=== PATIENT | female | born 1980 | race African-American/Black ===

== ENCOUNTER 2017-05-22 06:08 | Emergency (ER) | payer OTHER ==
[~2017-05-22] VITALS: Ht 152.4 cm; Wt 110.0 kg
[2017-05-22 07:15] VITALS: BP 157/85
[2017-05-22] MEDS ORDERED: DEXAMETHASONE 10 MG/ML VIAL IM ONE (07:15)
[2017-05-22] MEDS ORDERED: LORAZEPAM 1MG TABLET PO ONE (07:15)
[2017-05-22] MEDS ORDERED: KETOROLAC 60MG/2ML VIAL IM ONE (07:15)
== END 2017-05-22 10:24 | disposition home or self-care (01) ==
LOC: ER 06:08
DX: S46.911A Strain of unspecified muscle, fascia and tendon at shoulder and upper arm level, right arm, initial encounter (principal); F17.200 Nicotine dependence, unspecified, uncomplicated; X58.XXXA Exposure to other specified factors, initial encounter; Y93.89 Activity, other specified; Y92.89 Other specified places as the place of occurrence of the external cause; Y99.8 Other external cause status
CPT/HCPCS: 73030; 96372; 99284; J1100; J1885; A4565

== ENCOUNTER 2018-05-27 21:42 | Emergency (ER) | payer OTHER ==
[~2018-05-27] VITALS: Ht 154.9 cm; Wt 96.0 kg
[2018-05-28] MEDS ORDERED: ONDANSETRON HCL 4MG/2ML INJ IV STA (00:36)
[2018-05-28] MEDS ORDERED: MORPHINE SULFATE 4 MG/ML CPJ (NOT FOR IM USE) IV STA (00:36)
[2018-05-28] MEDS ORDERED: SODIUM CHLORIDE 0.9% 1,000 ML IV ONE (00:36)
[2018-05-28 01:00] LABS: BASOPHILS % 0.6 % (0.0-2.0); EOSINOPHILS % 0.6 % (0.0-5.0); HEMATOCRIT. 37.9 % (36.0-48.0); HEMOGLOBIN. 12.4 g/dL (12.0-16.0); LYMPHOCYTES % 29.4 % (20.0-50.0); MEAN CORPUSCULAR HEMOGLOBIN 28.3 pg (28.0-32.0); MEAN CORPUSCULAR VOLUME 86.4 fL (81.0-99.0); MEAN PLATELET VOLUME 7.3 fl (7.4-10.4); MONOCYTES % 7.6 % (2.0-8.0); NEUTROPHILS % 61.8 % (40.0-76.0); PLATELET 255 x1000/uL (130-400); RED BLOOD CELL COUNT 4.39 mill/uL (4.2-5.4); RED CELL DISTRIBUTION WIDTH 14.7 % (11.6-14.6)
[2018-05-28 01:05] LABS: CHLORIDE 109 mEq/L (98-107)
[2018-05-28 01:08] LABS: PROTHROMBIN TIME 10.3 sec (9.6-11.0)
[2018-05-28 03:38] LABS: CLARITY URINE CLOUDY (CLEAR); COLOR URINE DARK YELLOW (YELLOW); KETONES URINE TRACE (NEGATIVE); LEUKOCYTE ESTERASE URINE TRACE (NEGATIVE); NITRITE URINE NEGATIVE (NEGATIVE); OCCULT BLOOD URINE 3+ (NEGATIVE); PH URINE 5.5 (4.5-8.0); PROTEIN URINE 1+ (NEGATIVE); SPECIFIC GRAVITY URINE 1.037 (1.005-1.030)
[2018-05-28 06:26] VITALS: BP 108/58
[2018-05-28] MEDS ORDERED: HYDROCODONE/ACETAMINOPHEN 5/325MG TABLET PO ONE (06:30)
== END 2018-05-28 06:33 | disposition home or self-care (01) ==
LOC: ER 21:42
DX: D25.9 Leiomyoma of uterus, unspecified (principal); K80.80 Other cholelithiasis without obstruction; F17.210 Nicotine dependence, cigarettes, uncomplicated; Z88.6 Allergy status to analgesic agent
CPT/HCPCS: 36415; 74176; 80053; 81003; 81025; 83690; 85025; 85610; 96374; 96375; 99284; J2270; J2405; J7030; Z7610